=== PATIENT | female | born 1965 | race Caucasian/White ===

== ENCOUNTER → 2021-10-03 | Outpatient (CLI) | payer BC ==
[2021-10-03 10:15] VITALS: BP 130/83; PULSE 63; RESP 18; TEMP 97.9
--- NOTE | 2021-10-03 11:00 | P.HPOB ---
History of Present Illness H&P Date: 10/03/21 Chief Complaint: The patient is here for her routine gynecologic exam and ma mmogram. This is a 56-year-old with an LMP of 2010. The patient is here to establish with this office. It has been more than 5 years since her last pelvic exam. The patient is without gynecologic complaints and denies any postmenopausal bleeding. Review of Systems The patient has gained 10 pounds over the last year. She denies respiratory, cardiac, or G.I. problems. Past Medical History Past Medical History: Cancer, Thyroid Disorder Additional Past Medical History / Comment(s): Thyroid cancer status post right thyroidectomy with resulting hypothyroidism. PAST [employer] HISTORY: She has no history of STDs. History of Any Multi-Drug Resistant Organisms: None Reported Past Surgical History: Section, Tonsillectomy, Tubal Ligation Additional Past Surgical History / Comment(s): Right thyroidectomy 2014. Two vaginal deliveries followed by a and tubal ligation. 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 - Past Family History Father Family Medical History: Cancer Additional Family Medical History / Comment(s): Renal cancer. Paternal aunt had breast cancer. Mother Family Medical History: Hypertension Additional Family Medical History / Comment(s): Maternal grandmother had colon cancer. Medications and Allergies Home Medications Medication Instructions Recorded Confirmed Type Biotin [Biotin Disolve] 5,000 mcg PO 10/03/21 History Cholecalciferol [Vitamin D3 (25 50 mcg PO DAILY 10/03/21 10/03/21 History Mcg = 1000 Iu)] Levothyroxine Sodium [Synthroid] 88 mcg PO DAILY 10/03/21 10/03/21 History Allergies Allergy/AdvReac Type Severity Reaction Status Date / Time No Known Allergies Allergy Unverified 10/03/21 10:08 Exam Vital Signs Temp Pulse Resp BP Pulse Ox 10/03/21 10:11 97.9 F 63 18 130/83 98 Intake and Output 10/02/21 10/03/21 10/03/21 22:59 06:59 14:59 Other: Weight 84.368 kg Height 5 feet 9-1/2 inches, weight 186 pounds, BMI 27.1. This is a well-developed well-nourished white female who is alert and oriented times 3 in no acute distress. HEENT: Within normal limits. NECK: Supple without mass or thyromegaly. CHEST AND LUNGS: Clear to auscultation. HEART: Regular rate and rhythm. BREASTS: Are without mass or discharge. AXILLARY EXAM: Negative for adenopathy. BACK: Negative for CVA tenderness. ABDOMEN: Soft and nontender. There is some firmness in the suprapubic region consistent with uterine enlargement. The uterus is approximately 14 week size. There are no other palpable abdominal masses. PELVIC EXAM: Normal external genitalia with mild atrophy. Cervix and vagina appear normal mild atrophy. The cervix is slightly deviated to the left. There is no unusual discharge. There is no evidence of prolapse. The uterus is firm, midposition, approximately 14 weeks' size size and nontender. There are no palpable adnexal masses or tenderness. RECTAL EXAM: Rectovaginal exam is negative for mass or tenderness and is negative for occult blood. EXTREMITIES: Nontender. IMPRESSION: 1. 56-year-old menopausal female with uterine enlargement approximately 14 weeks' size on exam today. The patient has noticed a slight increase in the size of her abdomen, but attributed this to general weight gain. This is otherwise asymptomatic. Differential diagnosis will include fibroid uterus, generalized uterine enlargement without uterine fibroids, and less likely, an adnexal mass. PLAN: 1. Pap smear cotest was performed. 2. Self breast awareness was discussed with the patient. We have also discussed symptoms associated with inflammatory breast cancer. 3. Screening mammogram will be done today. 4. Pelvic ultrasound was recommended and the order slip was given to the patient for this. 5. Osteoporosis prevention was discussed. I have stressed the importance of adequate calcium, vitamin D and regular exercise. Recommended amounts of calcium and vitamin D were also discussed. 6. She was advised to return in one year for her annual well woman exam and as needed.
--- NOTE | 2021-10-04 10:36 | MM ---
Reason for exam: screening (asymptomatic). Last mammogram was performed 3 years and 7 months ago. History: Patient is postmenopausal and has history of other cancer at age 47. Physical Findings: A clinical breast exam by your physician is recommended on an annual basis and results should be correlated with mammographic findings. MG 3D Screening Mammo W/Cad Bilateral CC and MLO view(s) were taken. Prior study comparison: February 26, 2018, mammogram, performed at [facility]. February 07, 2017, mammogram, performed at [facility]. The breast tissue is heterogeneously dense. This may lower the sensitivity of mammography. There is no discrete abnormality. No significant changes when compared with prior studies. ASSESSMENT: Negative, BI-RAD 1 RECOMMENDATION: Routine screening mammogram of both breasts in 1 year.
== END ==
LOC: WWCWWP 09:47
PROVIDERS: ATTEND Obstetrics & Gynecology
DX: Z12.31 Encounter for screening mammogram for malignant neoplasm of breast (principal); Z01.419 Encounter for gynecological examination (general) (routine) without abnormal findings; N85.2 Hypertrophy of uterus; Z80.3 Family history of malignant neoplasm of breast
CPT/HCPCS: 77063; 77067

== ENCOUNTER → 2021-10-27 | Outpatient (CLI) | payer BC ==
--- NOTE | 2021-10-27 15:35 | US ---
EXAMINATION TYPE: US pelvic complete DATE OF EXAM: 10/27/2021 COMPARISON: NONE CLINICAL HISTORY: N85.2 UTERINE ENLARGMENT. UT felt large on physician exam TECHNIQUE: . Transabdominal sonographic images of the pelvis were acquired. TV assessment would n ot be able to properly assess large anterior right ovarian cyst in its entirety Date of LMP: EXAM MEASUREMENTS: Uterus: 9.4 x 4.5 x 3.4 cm Endometrial Stripe: Not well seen Right Ovary: 13.3 x 12.5 x 7.9cm Left Ovary: not seen 1. Uterus: Anteverted wnl 2. Endometrium: wnl 3. Right Ovary: large cyst with solid components 4. Left Ovary: not seen due to bowel gas and atrophy 5. Bilateral Adnexa: wnl 6. Posterior cul-de-sac: wnl Anteverted normal-sized uterus. Poorly visualized endometrial stripe on transabdominal investigation. Abnormal 13.3 x 12.5 x 7.9 cm unilocular cystic right pelvic lesion with at least one papillary solid projection difficult to accurately measure and characterize to size. IMPRESSION: As above. Normal-size uterus noted. At least ORADS 4 lesion. Advise referral to an ultras ound specialist or for MRI evaluation. Advise gynecology oncology referral, ovarian neoplasm suspecte d. A Yellow level critical message alert has been initiated for Derek Duke MD via the [employer] Critical Results System on 10/27/2021 3:32 PM. This message alert has been sent to Derek Duke MD via the preferences provided by the clinician for the receipt of Radiology Critical Findings. Yec[place]is e ID [id number].
== END | disposition home or self-care (01) ==
LOC: RADUSWWP 14:42
PROVIDERS: ATTEND Obstetrics & Gynecology
DX: N83.201 Unspecified ovarian cyst, right side (principal)
CPT/HCPCS: 76856

== ENCOUNTER → 2021-11-21 | Outpatient (CLI) | payer BC ==
--- NOTE | 2021-11-21 15:34 | XR ---
EXAMINATION TYPE: XR chest 2V DATE OF EXAM: 11/21/2021 COMPARISON: NONE HISTORY: Ovarian cancer. Presurgical study. TECHNIQUE: Frontal and lateral views of the chest are obtained. FINDINGS: There is no focal air space opacity, pleural effusion, or pneumothorax seen. The cardiac silhouette size is within normal limits. The osseous structures are intact. IMPRESSION: No acute cardiopulmonary process.
--- NOTE | 2021-11-22 11:23 | CT ---
EXAMINATION TYPE: CT abdomen pelvis w con DATE OF EXAM: 11/21/2021 COMPARISON: Ultrasound 10/27/2021 HISTORY: Ovarian mass, ca. Hx thyroid ca. CT DLP: 1215 mGycm Automated exposure control for dose reduction was used. CONTRAST: CT scan of the abdomen pelvis is performed with IV Contrast, patient injected with 100 mL of Isovue 3 00. FINDINGS- LUNG BASES- No significant abnormality is appreciated. No sizable pulmonary nodule or pleural effusi on. 2 mm cardiophrenic angle shotty lymph nodes. No pathologic size nodes seen. LIVER/GB-there is a subcentimeter hypodensity within the left lobe of the liver measuring 5 mm too sm all to characterize. Statistically most likely related to a cyst could be evaluated with MRI given in termediate Hounsfield unit measurement of 27 which may be related to partial volume average and dimin utive size of the nodule.. PANCREAS- No gross abnormality is seen. SPLEEN- No gross abnormality is seen. ADRENALS- No gross abnormality is seen. KIDNEYS/BLADDER- no hydronephrosis nephrolithiasis or renal mass. BOWEL- no bowel dilatation. Normal appendix. LYMPH NODES- No greater than 1cm abdominal or pelvic lymph nodes areappreciated. Shotty 5 mm or less lymph nodes are seen in the retroperitoneum. However, no pathologic sized lymph nodes are noted. OSSEOUS STRUCTURES- No significant abnormality is seen. 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 There is a 1.4 cm soft tissue nodule adjacent to the kidney and along the lower margin of the spleen most likely related to an accessory splenule. This could be confirmed with PET scan. There is a large pelvic mass likely tubo-ovarian measuring 14 cm with septations and wall thickening. Ultrasound demo nstrated somewhat complex cystic and solid component. Occupies a large portion of the pelvis. No evidence of omental thickening is seen. There is a tiny 3 mm nodule in the mesentery of the right abdomen and larger 7 mm soft tissue nodule within the posterior abdomen adjacent to the right colon o n axial image 44 which are too small to characterize a represent shotty lymph nodes. Peritoneal impla nt is not entirely excluded given the size of the lesions which are too small to characterize. Additi onal sub-5 mm peritoneal densities are also too small to characterize. IMPRESSION- 1. Complex cystic mass within the pelvis measuring approximately 14 cm suspicious for tubo-ovarian et iology. No definite pathologic adenopathy within the pelvis or retroperitoneum. Shotty lymph nodes ar e seen measuring nonpathologic in size could be monitored closely. Correlation with tumor markers suc h as Ova1 and CA 125 suggested if not already performed. 2. No evidence of omental thickening. 3. There is a 5 mm left lobe hepatic lesion too small to characterize. If the patient is positive for tumor markers are suspected ovarian cancer MRI could be obtained to determine if this is related to tiny cyst which is felt to be statistically most likely etiology. 4. Tiny punctate 5 mm less densities within the peritoneum and mesentery too small to characterize. L argest seen measuring 6 mm right lower quadrant axial image 44. Could represent tiny shotty lymph nod es rather than tiny early implants. These can be monitored as clinically warranted. 5. 1.4 cm soft tissue nodule inferior to the spleen. There are no prior exams available for compariso n. This could represent an accessory spleen. This can also be confirmed with either MRI or PET scan
== END | disposition home or self-care (01) ==
LOC: RADCTMAIN 15:10
PROVIDERS: ATTEND Obstetrics & Gynecology
DX: Z01.818 Encounter for other preprocedural examination (principal); C73 Malignant neoplasm of thyroid gland; C56.9 Malignant neoplasm of unspecified ovary
CPT/HCPCS: 71046; 74177; Q9967

== ENCOUNTER → 2022-10-24 | Outpatient (CLI) | payer BC ==
--- NOTE | 2022-10-25 08:53 | MM ---
Reason for Exam: Screening (asymptomatic). Last mammogram was performed 1 year(s) and 1 month(s) ago. Patient History: Menarche at age 14. First Full-Term at age 26. Left ovary removed at age 57. Right ovary removed at age 57. Hysterectomy at age 57. Postmenopausal. Other cancer, age 47. Paternal aunt had breast cancer, age 30. Risk Values: Lesley 5 year model risk: 1.4%. NCI Lifetime model risk: 8.9%. Prior Study Comparison: 02/07/2017 Screening Mammogram, [facility]. 02/26/2018 Screening Mammogram, [facility]. 10/03/2021 Bilateral Screening Mammogram, [facility]. Tissue Density: The breast tissue is heterogeneously dense. This may lower the sensitivity of mammography. Findings: Analyzed By CAD. There is no suspicious group of microcalcifications or new suspicious mass in either breast. Overall Assessment: Negative, BI-RAD 1 Management: Screening Mammogram of both breasts in 1 year. A clinical breast exam by your physician is recommended on an annual basis and results should be correlated with mammographic findings. [facility] will attempt to contact patient to return for supplemental views and ultrasound if indicated. Electronically signed and approved by: Terrence Genao DO
== END | disposition home or self-care (01) ==
LOC: RADMAMWWP 11:14
PROVIDERS: ATTEND Pediatrics
DX: Z12.31 Encounter for screening mammogram for malignant neoplasm of breast (principal); Z78.0 Asymptomatic menopausal state; Z80.3 Family history of malignant neoplasm of breast; Z90.721 Acquired absence of ovaries, unilateral
CPT/HCPCS: 77063; 77067

== ENCOUNTER → 2023-10-28 | Outpatient (CLI) | payer BC ==
--- NOTE | 2023-10-30 08:35 | MM ---
Reason for Exam: Screening (asymptomatic). Last screening mammogram was performed 12 month(s) ago. Patient History: Menarche at age 14. First Full-Term at age 26. Left ovary removed at age 57. Right ovary removed at age 57. Hysterectomy at age 57. Postmenopausal. Other cancer, age 47. Paternal aunt had breast cancer, age 30. Sister had breast cancer. Risk Values: Lesley 5 year model risk: 2.5%. NCI Lifetime model risk: 14.9%. Prior Study Comparison: 02/26/2018 Screening Mammogram, [facility]. 10/03/2021 Bilateral Screening Mammogram, [facility]. 10/24/2022 Bilateral MG 3D screening mammo w/cad, [facility]. Tissue Density: The breast tissue is heterogeneously dense. This may lower the sensitivity of mammography. Findings: Analyzed By CAD. There is no suspicious group of microcalcifications or new suspicious mass in either breast. Overall Assessment: Benign, BI-RAD 2 Management: Screening Mammogram of both breasts in 1 year. . Patient should continue monthly self-breast exams. A clinical breast exam by your physician is recommended on an annual basis. This exam should not preclude additional follow-up of suspicious palpable abnormalities. Note on Lesley scores and lifetime risk: 1. A Lesley score greater than 3% is considered moderate risk. If this is the case, consider specialist referral to assess eligibility for a risk reducing agent. 2. If overall lifetime risk for the development of breast cancer is 20% or higher, the patient may qualify for future screening with alternating mammogram and breast MRI. Electronically signed and approved by: Eduin Figueroa M.D. Radiologis
== END | disposition home or self-care (01) ==
LOC: RADMAMWWP 11:26
PROVIDERS: ATTEND Pediatrics
DX: Z12.31 Encounter for screening mammogram for malignant neoplasm of breast (principal); Z80.3 Family history of malignant neoplasm of breast; Z78.0 Asymptomatic menopausal state
CPT/HCPCS: 77063; 77067

== ENCOUNTER → 2024-11-03 | Outpatient (CLI) | payer BC ==
--- NOTE | 2024-11-05 15:43 | MM ---
Reason for Exam: Screening (asymptomatic). Last screening mammogram was performed 12 month(s) ago. Patient History: Menarche at age 14. First Full-Term at age 26. Left ovary removed at age 57. Right ovary removed at age 57. Hysterectomy at age 57. Postmenopausal. Other cancer, age 47. Paternal aunt had breast cancer, age 30. Sister had breast cancer. Risk Values: Lesley 5 year model risk: 2.6%. NCI Lifetime model risk: 14.6%. Prior Study Comparison: 10/03/2021 Bilateral Screening Mammogram, [facility]. 10/24/2022 Bilateral MG 3D screening mammo w/cad, [facility]. 10/28/2023 Bilateral MG 3D screening mammo w/cad, [facility]. Tissue Density: The breasts are heterogeneously dense, which may obscure small masses. Findings: Analyzed By CAD. A 4.2 cm fat density circumscribed area 11-12 o'clock right breast remains unchanged and could represent a breast lipoma or area of previous injury. Nodular asymmetric density medial right CC view anterior depth appears more defined and incompletely disperses on 3-D images. This may represent superimposition shadow but further evaluation is recommended. Otherwise, no significant change. Overall Assessment: Incomplete: need additional imaging evaluation, BI-RAD 0 Management: Special View Mammogram of the right breast. Diagnostic Breast Ultrasound of the right breast. Additional views to include spot 3-D CC, 3-D CC rolled, and 3-D LM views. [facility] will attempt to contact patient to return for supplemental views and ultrasound if indicated. [facility], , 11/05/2024 3:40 PM. Electronically signed and approved by: Tunde Agrawal M.D. Radiologist
== END | disposition home or self-care (01) ==
LOC: RADMAMWWP 07:57
PROVIDERS: ATTEND Pediatrics
DX: Z12.31 Encounter for screening mammogram for malignant neoplasm of breast (principal); Z90.722 Acquired absence of ovaries, bilateral; Z78.0 Asymptomatic menopausal state; Z80.3 Family history of malignant neoplasm of breast; R92.333 Mammographic heterogeneous density, bilateral breasts
CPT/HCPCS: 77063; 77067

== ENCOUNTER → 2024-11-18 | Outpatient (CLI) | payer BC ==
--- NOTE | 2024-11-18 13:25 | MM ---
Reason for Exam: Additional evaluation requested from abnormal screening. Last screening mammogram was performed less than 1 month ago. Patient History: Menarche at age 14. First Full-Term at age 26. Left ovary removed at age 57. Right ovary removed at age 57. Hysterectomy at age 57. Postmenopausal. Other cancer, age 47. Paternal aunt had breast cancer, age 30. Sister had breast cancer. Risk Values: Lesley 5 year model risk: 2.6%. NCI Lifetime model risk: 14.6%. Tissue Density: Right: The breasts are heterogeneously dense, which may obscure small masses. Findings: Analyzed By CAD. Area of concern/asymmetry compresses out on spot compression imaging. No suspicious masses, calcifications or distortions. Overall Assessment: Benign, BI-RAD 2 Management: Screening Mammogram of both breasts in 1 year. Results were given to the patient verbally at the time of exam. Patient should continue monthly self-breast exams. A clinical breast exam by your physician is recommended on an annual basis. This exam should not preclude additional follow-up of suspicious palpable abnormalities. Note on Lesley scores and lifetime risk: 1. A Lesley score greater than 3% is considered moderate risk. If this is the case, consider specialist referral to assess eligibility for a risk reducing agent. 2. If overall lifetime risk for the development of breast cancer is 20% or higher, the patient may qualify for future screening with alternating mammogram and breast MRI. [facility], , 11/18/2024 1:22 PM. Electronically signed and approved by: Terrence Genao DO
== END | disposition home or self-care (01) ==
LOC: RADMAMWWP 13:00
PROVIDERS: ATTEND Pediatrics
DX: R92.8 Other abnormal and inconclusive findings on diagnostic imaging of breast (principal); R92.333 Mammographic heterogeneous density, bilateral breasts; Z78.0 Asymptomatic menopausal state; Z80.3 Family history of malignant neoplasm of breast; Z90.722 Acquired absence of ovaries, bilateral
CPT/HCPCS: 77061; 77065